=== PATIENT | male | born 1990 | race Caucasian/White ===

== ENCOUNTER 2023-12-10 13:47 | Emergency (ER) | payer OTHER ==
[~2023-12-10] VITALS: Ht 187.9 cm; Wt 101.6 kg
[2023-12-10] MEDS ORDERED: Acetaminophen/Oxycodone 5 MG/325 MG TABLET PO ONE (13:55)
[2023-12-10] MEDS ORDERED: PERCOCET 5-3251 EACH PO (15:14)
[2023-12-10] MEDS ORDERED: MELOXICAM15 MG PO (15:15)
== END 2023-12-10 15:18 | disposition home or self-care (01) ==
LOC: ED 13:47
DX: S62.312A Displaced fracture of base of third metacarpal bone, right hand, initial encounter for closed fracture (principal); S62.314A Displaced fracture of base of fourth metacarpal bone, right hand, initial encounter for closed fracture; S62.610A Displaced fracture of proximal phalanx of right index finger, initial encounter for closed fracture; M25.561 Pain in right knee; V47.5XXA Car driver injured in collision with fixed or stationary object in traffic accident, initial encounter; Y93.I9 Activity, other involving external motion; Y92.488 Other paved roadways as the place of occurrence of the external cause; Y99.8 Other external cause status